=== PATIENT | female | born 1975 | race Caucasian/White ===

== ENCOUNTER 2018-09-12 05:31 | Day surgery (SDC) | payer OTHER ==
[2018-09-05 10:15] LABS: HEMATOCRIT 35.1 % (36.0-47.0); MEAN CORPUSCULAR HEMOGLOBIN 32.6 pg (27.0-33.4); MEAN CORPUSCULAR HGB CONC 34.2 g/dL (32.0-36.0); MEAN CORPUSCULAR VOLUME 95 fl (80-97); PLATELET COUNT 278 10^3/uL (150-450); RED BLOOD COUNT 3.69 10^6/uL (3.72-5.28); WHITE BLOOD COUNT 4.7 10^3/uL (4.0-10.5)
[2018-09-05 10:43] LABS: ANION GAP 7 (5-19); BLOOD UREA NITROGEN 14 mg/dL (7-20); CALCIUM 9.3 mg/dL (8.4-10.2); CARBON DIOXIDE 28 mmol/L (22-30); CHLORIDE 104 mmol/L (98-107); GLUCOSE 97 mg/dL (75-110); POTASSIUM 4.8 mmol/L (3.6-5.0); SODIUM 138.8 mmol/L (137-145)
[~2018-09-12 05:31] MED LIST: CEFAZOLIN 2 GM/D5W RTU 2 GM/50 ML RTUPB IV ONE; LIDOCAINE 0.5% INJ-PF (5 MG/ML) 50 ML SDV INJ ONE; NORMAL SALINE 1000 ML 1,000 ML IV PRN; RINGERS SOLUTION,LACTATED 1,000 ML IV PRN
[2018-09-12] MEDS ORDERED: CEFAZOLIN 2 GM/D5W RTU 2 GM/50 ML RTUPB IV ONE (05:39)
[2018-09-12] MEDS ORDERED: SUGAMMADEX SODIUM 200 MG/2 ML SDV IV ONE (06:36)
[2018-09-12] MEDS ORDERED: MIDAZOLAM 2 MG/2 ML INJ ONE (06:36)
[2018-09-12] MEDS ORDERED: FENTANYL CITRATE INJ/PF 250 MCG/5 ML AMPULE ONE (06:36)
[2018-09-12] MEDS ORDERED: HYDROMORPHONE HCL INJ/PF 2 MG/ML AMPULE ONE (06:36)
[2018-09-12] MEDS ORDERED: PROPOFOL INJ 200 MG/20 ML VIAL IV ONE (06:37)
[2018-09-12] MEDS ORDERED: BUPIVACAINE HCL 0.25 % INJ/PF (2.5 MG/1 ML) 30 ML VIAL ONE (07:23)
[2018-09-12] MEDS ORDERED: DIPHENHYDRAMINE HCL 50 MG/ML VIAL IV PRN (09:02)
[2018-09-12] MEDS ORDERED: FENTANYL CITRATE INJ/PF 100 MCG/2 ML AMPUL IV PRN ×3 (09:02)
[2018-09-12] MEDS ORDERED: MORPHINE SULFATE 10 MG/ML INJ IV PRN ×2 (09:02→11:25)
[2018-09-12] MEDS ORDERED: MEPERIDINE HCL/PF INJ 25 MG/1 ML DISP.SYRIN IV PRN (09:02)
[2018-09-12] MEDS ORDERED: PROMETHAZINE HCL INJ 25 MG/1 ML VIAL IV PRN ×3 (09:02→11:26)
[2018-09-12] MEDS ORDERED: METHYLENE BLUE 50 MG/10 ML AMPULE ONE (09:54)
[2018-09-12] MEDS ORDERED: FENTANYL CITRATE INJ/PF 100 MCG/2 ML AMPUL ONE ×2 (10:45→11:08)
[2018-09-12] MEDS ORDERED: OXYCODONE-ACETAMINOPHEN 5-325 MG TABLET PO PRN (11:24)
[2018-09-12] MEDS ORDERED: OXYCODONE HCL IR 5 MG TABLET PO PRN (11:24)
[2018-09-12] MEDS ORDERED: ONDANSETRON HCL INJ/PF 4 MG/2 ML SDV IV PRN (11:25)
[2018-09-12] MEDS ORDERED: NORMAL SALINE 1000 ML 600 ML IV PRN (11:27)
[2018-09-12] MEDS ORDERED: HYDROMORPHONE HCL 2 MG TABLET PO PRN (11:27)
--- NOTE | 2018-09-12 12:04 | OPERATIVE REPORT E ---
Operative Report NAME: MASSIMO RAMOS : 1975 AGE: 43Y DATE OF SURGERY: 09/12/2018 ROOM: PREOPERATIVE DIAGNOSES: 1. Abnormal uterine bleeding-leiomyoma. 2. Abnormal uterine bleeding, unresponsive to medical therapy, including an intrauterine device. 3. Chronic pelvic pain. POSTOPERATIVE DIAGNOSES: 1. Abnormal uterine bleeding-leiomyoma. 2. Abnormal uterine bleeding, unresponsive to medical therapy, including an intrauterine device. 3. Chronic pelvic pain. OPERATIONS: 1. Robotic total laparoscopic hysterectomy. 2. Bilateral salpingectomy. 3. Cystoscopy. 4. Extensive lysis of adhesions. SURGEON: Reshma Ocasio MD ANESTHESIA: General. INTRAVENOUS FLUIDS: 1900. URINE OUTPUT: 200 clear urine at end of procedure. COMPLICATIONS: None. ESTIMATED BLOOD LOSS: 300 mL. SPECIMEN: Uterus, cervix, fallopian tubes bilaterally. INDICATION: The patient is a 43-year-old with a history of previous x2 and a history of cholecystectomy and appendectomy who presented with abnormal uterine bleeding with a leiomyoma who has been unresponsive to medical therapy previously, who has been having persistent menorrhagia for 3-5 years now without resolution of her symptoms. The patient was taken to the operating room for robotic total laparoscopic hysterectomy with bilateral salpingectomy and a cystoscopy. Consent was obtained. Consent included the risks that were discussed with the patient including but not limited to bleeding, infection, injury to bowel, bladder, possible exploratory laparotomy, transfusion of packed red blood cells, and any other indicated procedures. The patient was consented and agreed to proceed and signed the consent, and agreed to proceed with the operative plan. PROCEDURE: The patient was taken to the operating room where general anesthesia was found to be adequate. She was prepped and draped in a normal sterile fashion. A heavy-weighted speculum was inserted. The cervix was visualized. The anterior lip of the cervix was grasped with a tenaculum. Two anchoring stitches of 3 and 9 o'clock were inserted and a Threadboxare manipulator was introduced and anchored within those stitches. At this point, the tenaculum was removed, Espino catheter inserted. The manipulator was properly placed and anchored within the stitches. At this point, attention was turned from above where a 10 mm horizontal supraumbilical incision was performed. The Veress needle introduced and insufflation of the abdomen performed successfully. Trocar insertion inserted. Camera inserted. After visualization, intra-abdominal placement was confirmed. Survey of the abdomen revealed obliterated anterior and posterior cul-de-sac, right and left omental adhesions, the pelvic sidewalls and omental adhesion from the inferior aspect of the umbilicus all the way to the anterior cul-de-sac. At this point, 3 additional trocars were inserted, one in the right lower, one in the right upper quadrant, and one in the left lower quadrant of the robots and they were both inserted under direct visualization, and prior to starting any portion of the procedure, the ureters were identified and visualized and both peristalsing and well outside the surgical field at all times. In order to visualize the anatomical structures of the uterus, tubes, and ovaries bilaterally and the ureters, omental adhesions were taken down with a ventral seal where it was cauterized and transected as close as inferiorly possible to the anterior abdominal wall, and after extensive lysis of adhesion and taking the omentum down, visualization was achieved in a 360 fashion. The fimbriated end of the right fallopian tube was grasped, cauterized, and transected along the mesosalpinx. The utero-ovarian ligament was cauterized and transected. The round ligament was cauterized and transected all the way down to the level of the uterine vessels. The anterior leaf of the broad ligament was spread out in order to visualize the lower uterine segment and push the bladder away from the surgical field. It was slightly difficult due to extensive scarring on the lower uterine segment from her history of previous x2. The contralateral side was performed in a similar fashion. Fimbriated end was cauterized and transected all the way to the corneal end. The utero-ovarian was cauterized and transected. The round ligament cauterized and transected all the way down to the level of the uterine vessels using a vessel seal. At this point, once on the left and the right the anterior broad ligament was cauterized and transected and then the bladder was pushed down away from the surgical field. Due to the extensive scarring in the lower uterine segment, a careful dissection was performed to make sure the bladder flap was correctly excised and pushed down all the way away from the Vcare cup. At this point, an anterior colpotomy was performed and the green top of the Vcare was visualized. The posterior colpotomy also was performed. The green portion of the Vcare was visualized and connected from anterior to posterior and the colpotomy was performed successfully using the scissors bipolar, and at this point, the uterus, fallopian tubes, and cervix were completely freed after complete colpotomy in a circumferential manner and was removed vaginally. At this point, the vaginal cuff was closed with V-Loc suture in a running fashion. There were small oozing portions from the vaginal cuff that were cauterized with bipolar. After closure of the vaginal cuff, I asked that Anesthesia give methylene blue in preparation for the cystoscopy portion. At this point, also, the visualization of both ureters were confirmed and they were both peristalsing in a way from the surgical field at all times. Hemostasis was obtained. FloSeal was injected along the vaginal cuff for prophylactic measures. The patient tolerated the procedure well from the robotic standpoint. The robot was still docked. At this point, while the robot was still intact, cystoscopy portion was performed from below. The cystoscope was inserted. Visualization of bladder revealed no trauma or foreign bodies. Excellent strong ureteral efflux flow from both the right and left ureteral orifices were visualized with strong methylene blue coming through. No trauma to the bladder dome or the trigone. Cystoscopy portion was completed and was normal. Also, the cystoscopy portion was completed with good visualization of bladder within the bladder from below and while the robot camera was inserted from above, there was no leakage of uterine into the peritoneum. At this point, the cystoscope was removed after draining the bladder. Attention was turned back from above and laparoscopic camera was removed and laparoscopic instruments, trocars were removed under direct visualization. The 4 trocar incisions were closed with stitches. The one that was supraumbilical was reapproximated with a UR6. Everything else was reapproximated with 4-0 Monocryl. The right upper quadrant, right lower quadrant, and left lower quadrant were closed with 4-0 Monocryl in a continuous fashion and Dermabond was applied on top of it. Prior to the application of Dermabond, epi was injected for postoperative pain around all the incisions. The patient's vaginal mucosa was inspected below to make sure there were no other lacerations. Hemostasis was obtained. There was no bleeding coming from the vaginal cuff. The patient tolerated the procedure well. All lap, sponge, and needle counts were correct x2. The patient was taken to the recovery room in stable condition. DICTATING PHYSICIAN: Reshma Ocasio MD [id number] PHY#: [id number] ID: [id number] JOB#: [id number] ACCT: [id number] cc:Reshma Ocasio >
[2018-09-12] MEDS ORDERED: KETOROLAC TROMETHAMINE 60 MG/2 ML SDV ONE (14:49)
[2018-09-12] MEDS ORDERED: NEOSTIGMINE METHYLSULFATE 10 MG/10 ML VIAL ONE (14:49)
[2018-09-12] MEDS ORDERED: DEXAMETHASONE SOD PHOSPHATE INJ 4 MG/1 ML VIAL ONE (14:49)
[2018-09-12] MEDS ORDERED: METOCLOPRAMIDE HCL INJ/PF 10 MG/2 ML SDV ONE (14:49)
[2018-09-12] MEDS ORDERED: ONDANSETRON HCL INJ/PF 4 MG/2 ML SDV ONE (14:49)
[2018-09-12] MEDS ORDERED: ROCURONIUM BROMIDE INJ 50 MG/5 ML VIAL IV ONE (14:49)
[2018-09-12] MEDS ORDERED: LIDOCAINE 2% INJ-PF (20 MG/ML) 2 ML AMPUL ONE (14:49)
[2018-09-12] MEDS ORDERED: GLYCOPYRROLATE 1 MG/5 ML VIAL ONE (14:49)
[2018-09-12 16:43] VITALS: BP 132/55
== END 2018-09-12 17:35 | disposition home or self-care (01) ==
LOC: OROUT 05:31 → 2N 11:50 → OROUT 17:35
PROVIDERS: ATTEND Obstetrics & Gynecology
DX: D25.9 Leiomyoma of uterus, unspecified (principal); N92.0 Excessive and frequent menstruation with regular cycle; N84.0 Polyp of corpus uteri; N80.0 Endometriosis of uterus; K66.0 Peritoneal adhesions (postprocedural) (postinfection); G89.29 Other chronic pain; R10.2 Pelvic and perineal pain
CPT/HCPCS: 49329; 58573; S2900; 36415; 80048; 81025; 840; 85027; 86850; 86900; 86901; 88307; J0690; J1100; J1170; J1885; J2250; J2405; J2704; J2710; J2765; J3010; J3490; Q9968